=== PATIENT | female | born 2000 | race African-American/Black ===

== ENCOUNTER 2021-10-30 14:58 | Inpatient (IN) ==
[2021-10-30] MEDS ORDERED: AMPICILLIN INJ 2,000 MG in SODIUM CHLORIDE 0.9% 100 ML IV ONE (15:00)
[2021-10-30] MEDS ORDERED: OXYTOCIN/LR 20 UNIT/1,000 ML BAG IV ONE ×2 (15:15→22:11)
[2021-10-30] MEDS ORDERED: miSOPROStoL 200 MCG TABLET RECTAL PRN (15:15)
[2021-10-30] MEDS ORDERED: TRANEXAMIC ACID 1,000 MG in SODIUM CHLORIDE 0.9% 100 ML IV PRN (15:15)
[2021-10-30] MEDS ORDERED: ONDANSETRON 4 MG/2 ML VIAL IV PRN ×2 (15:15→22:11)
[2021-10-30] MEDS ORDERED: BUTORPHANOL 2 MG/ML VIAL IV PRN (15:15)
[2021-10-30] MEDS ORDERED: MEPERIDINE 50 MG/1 ML VIAL IV PRN (15:15)
[2021-10-30] MEDS ORDERED: METHYLERGONOVINE 0.2 MG/1 ML AMP IM PRN (15:15)
[2021-10-30] MEDS ORDERED: CARBOPROST TROMETHAMINE 250 MCG/ML AMP IM PRN (15:15)
[2021-10-30] MEDS ORDERED: PROMETHAZINE 25 MG/1 ML VIAL IM ONE (15:29)
[2021-10-30] MEDS: LACTATED RINGERS 1,000 ML IV SCH ×2 (15:29→17:08)
[2021-10-30] MEDS ORDERED: diphenhydrAMINE 50 MG/1 ML VIAL IV PRN ×2 (15:29)
[2021-10-30] MEDS ORDERED: ONDANSETRON 4 MG/2 ML VIAL IV ONE (15:29)
[2021-10-30] MEDS ORDERED: hydrOXYzine HCL 25 MG/1 ML VIAL IM PRN (15:29)
[2021-10-30] MEDS ORDERED: FAMOTIDINE 20 MG/2 ML VIAL IV ONE (15:29)
[2021-10-30] MEDS ORDERED: ePHEDrine 50 MG/ML VIAL IV PRN (15:29)
[2021-10-30] MEDS ORDERED: LACTATED RINGERS 1,000 ML IV ONE (15:29)
[2021-10-30] MEDS ORDERED: NALOXONE 0.4 MG/ML VIAL IV PRN (15:29)
[2021-10-30] MEDS ORDERED: CITRIC ACID/SODIUM CITRATE 30 ML UDCUP PO ONE (15:29)
[2021-10-30] MEDS ORDERED: LACTATED RINGERS 1,000 ML IV SCH (15:30)
[2021-10-30] MEDS ORDERED: fentaNYL 2 MCG/ROPIV 0.2% EPID 100 ML EPIDURAL SCH (15:30)
[2021-10-30 15:35] LABS: Basophils % 0.1 % (0.0-0.8); Eosinophils % 0.1 % (0.00-10.9); Hematocrit 39.5 VOL% (35.7-47.0); Hemoglobin 11.9 GM/DL (12.0-16.0); Immature Granulocytes % 0.6 %; Immature Granulocytes Absolute 0.07 #; Lymphocytes # 1.3 10*3/uL (1.4-4.0); Lymphocytes % 10.4 % (21.3-54.2); Mean Corpuscular HGB Conc 30.1 GM/DL (32-36); Mean Corpuscular Volume 73.1 FL (87-102); Mean Platelet Volume 11.2 FL (9.6-12.0); Monocytes # 0.4 10*3/uL (0.11-0.8); Monocytes % 3.5 % (1.7-12.7); Neutrophils % 85.3 % (38.7-73.9); Platelet Count 215 T/CUMM (130-400); Red Cell Distribution Width 14.4 % (9.3-17.3); White Blood Count 12.7 T/CUMM (4-12)
[2021-10-30 15:57] LABS: Albumin 2.9 G/DL (3.4-5.0); Bilirubin,Total 0.6 MG/DL (0.20-1.00); Calcium 9.3 MG/DL (8.5-10.1); Potassium 3.3 MMOL/L (3.5-5.1)
[2021-10-30] MEDS ORDERED: POTASSIUM CHLORIDE 20 MEQ TABLET PO PRN (16:11)
[2021-10-30] MEDS ORDERED: OXYTOCIN/LR 20 UNIT/1,000 ML BAG IV SCH (17:00)
[2021-10-30] MEDS ORDERED: SODIUM CHLORIDE 0.9% 0 ML IV ONE (18:02)
[2021-10-30] MEDS ORDERED: miSOPROStoL 200 MCG TABLET ONE (18:02)
[2021-10-30] MEDS ORDERED: TRANEXAMIC ACID 1,000 MG/10 ML VIAL ONE (18:02)
[2021-10-30] MEDS ORDERED: CARBOPROST TROMETHAMINE 250 MCG/ML AMP IM ONE (18:03)
[2021-10-30] MEDS ORDERED: METHYLERGONOVINE 0.2 MG/1 ML AMP ONE (18:03)
[2021-10-30 18:06] LABS: Bilirubin,Urine Negative (Negative); Blood, Urine Negative (Negative); Glucose,Urine (UA) Negative (Negative); Ketones,Urine >=160 mg/dL (Negative); Nitrite,Urine Negative (Negative); Protein,Urine 100 mg/dL (Negative); Urine Appearance Clear (Clear); Urine Color Yellow (Yellow); Urine Specific Gravity >= 1.030 (1.001-1.035); Urine pH 6.5 (4.5-8.0)
[2021-10-30 18:08] LABS: Mucus,Urine Moderate /LPF (Occasional); Squamous Epithelial Cell,Urine Occasional /HPF (0-10)
[2021-10-30 18:47] LABS: Cord Arterial Blood HCO3 22.3 MMOL/L
[2021-10-30 18:52] LABS: Cord Venous Blood HCO3 23.6 MMOL/L; Cord Venous Blood PCO2 50.6 MMHG; Cord Venous Blood PO2 33.1
[2021-10-30] MEDS ORDERED: AMPICILLIN INJ 1,000 MG in SODIUM CHLORIDE 0.9% 100 ML IV SCH (19:00)
[2021-10-30] MEDS ORDERED: MEASLES/MUMPS/RUBELLA VACCINE 0.5 ML VIAL SUBCUT ONE (22:11)
[2021-10-30] MEDS ORDERED: RHO(D) IMMUNE GLOBULIN 300 MCG SYRINGE IM ONE (22:11)
[2021-10-30] MEDS ORDERED: WITCH HAZEL PADS 100/JAR TOP PRN (22:11)
[2021-10-30] MEDS ORDERED: LANOLIN 50% CREAM 0.3 OZ TUBE TOP PRN (22:11)
[2021-10-30] MEDS ORDERED: HYDROCORTISONE 2.5% RECTAL CREAM 30 GM TUBE TOP PRN (22:11)
[2021-10-30] MEDS ORDERED: BENZOCAINE 20%/MENTHOL 0.5% SPRAY 56 GM CAN TOP PRN (22:11)
[2021-10-30] MEDS ORDERED: ACETAMINOPHEN 325 MG TABLET PO PRN (22:11)
[2021-10-30] MEDS ORDERED: DIPH/TET/ACEL PERT BOOSTER VACCINE 0.5 ML VIAL IM ONE (22:11)
[2021-10-30] MEDS ORDERED: oxyCODONE/ACETAMINOPHEN 5-325 MG TABLET PO PRN ×2 (22:11)
[2021-10-30] MEDS ORDERED: BISACODYL 10 MG SUPP RECTAL PRN (22:11)
[2021-10-30] MEDS: DOCUSATE SODIUM 100 MG CAPSULE PO SCH (23:25)
[2021-10-30] MEDS: POTASSIUM CHLORIDE 20 MEQ TABLET PO PRN (23:25)
[2021-10-31] MEDS: POTASSIUM CHLORIDE 20 MEQ TABLET PO PRN ×2 (03:01→05:55)
[2021-10-31 06:16] LABS: Basophils % 0.1 % (0.0-0.8); Eosinophils % 0.1 % (0.00-10.9); Hematocrit 32.2 VOL% (35.7-47.0); Hemoglobin 10.2 GM/DL (12.0-16.0); Immature Granulocytes % 0.6 %; Immature Granulocytes Absolute 0.09 #; Lymphocytes # 1.8 10*3/uL (1.4-4.0); Lymphocytes % 11.2 % (21.3-54.2); Mean Corpuscular HGB Conc 31.7 GM/DL (32-36); Mean Corpuscular Volume 71.2 FL (87-102); Mean Platelet Volume 11.1 FL (9.6-12.0); Monocytes # 1.2 10*3/uL (0.11-0.8); Monocytes % 7.5 % (1.7-12.7); Neutrophils % 80.5 % (38.7-73.9); Platelet Count 171 T/CUMM (130-400); Red Blood Count 4.52 MC/CUMM (3.8-5.5); Red Cell Distribution Width 14.1 % (9.3-17.3); White Blood Count 15.8 T/CUMM (4-12)
[2021-10-31] MEDS: DOCUSATE SODIUM 100 MG CAPSULE PO SCH ×2 (10:29→20:36)
[2021-10-31] MEDS: IBUPROFEN 800 MG TABLET PO PRN ×2 (12:38→23:52)
[2021-11-01 08:02] VITALS: BP 102/63
== END 2021-11-01 13:09 | disposition home or self-care (01) | DRG 807 ==
LOC: N.LDOUT 14:58 → N.LD 15:00 → N.OB 21:35
PROVIDERS: ADMIT Student in an Organized Health Care Education/Training Program; ATTEND Student in an Organized Health Care Education/Training Program